=== PATIENT | male | born 2000 | race Caucasian/White ===

== ENCOUNTER 2019-01-28 20:22 | Inpatient (IN) | payer MEDICAID ==
[~2019-01-28] VITALS: Ht 182.9 cm; Wt 84.1 kg
[2019-01-28 23:08] VITALS: BP 133/86; BMI 25.1
[2019-01-28] MEDS ORDERED: IMITREX50 MG PO (23:10)
[2019-01-29] VITALS: BP 122/61
[2019-01-29 03:00] VITALS: BP 119/67
--- NOTE | 2019-01-29 08:12 | NUR ---
AWAKE AND ALERT. ORIENTED X3. NO C/O AT THIS TIME. LUNGS ARE CLEAR BILATERALLY, NO COUGH NOTED. SKIN IS INTACT WITHOUT REDNESS. RIGHT ARM IN SLING,NEUROVASCULAR CHECKS WNL. IV TO LEFT FOREARM IS PATENT WITHOUT REDNESS AT INSERTION SITE. REPORTED FEELS NO URGE TO VOID AT THIS TIME. WILL MONITOR. NO C/O PAIN TO RIGHT ARM.
[2019-01-29 08:19] VITALS: Ht 182.9 cm; Wt 84.1 kg
[2019-01-29 08:46] VITALS: BP 131/74
--- NOTE | 2019-01-29 09:30 | NUR ---
REQUESTED AND GIVEN 50MG IMITREX PO FOR C/O HEADACHE. WILL MONITOR.
--- NOTE | 2019-01-29 12:51 | NUR ---
REPORTS HEADACHE IS FINALLY GONE. OFF UNIT VIA BED TO SURGERY.
[2019-01-29 13:46] VITALS: BP 159/77
[2019-01-29 16:09] VITALS: BP 117/58
--- NOTE | 2019-01-29 16:10 | NUR ---
RETURNED FROM SURGERY. A/O X3. NO C/O AT THIS TIME. REPORTS RIGHT ARM IS NUMB. DENIES NEEDS.
--- NOTE | 2019-01-29 18:38 | NUR ---
ATE ALL OF SUPPER. DENIES NEEDS. NO PAIN BLOCK IS STILL WORKING.
--- NOTE | 2019-01-29 18:42 | NUR ---
ATE ALL OF SANDWICH TRAY PLUS PORK CHOP. DENIES NEEDS. NO CHANGES NOTED.
[2019-01-29 20:00] VITALS: BP 103/54
--- NOTE | 2019-01-29 20:45 | NUR ---
A&O X 4. PERIPHERAL PULSES PALPABLE. PT IS ABLE TO MOVE FINGERS ON RIGHT HAND SLIGHTLY. REPORTS ADEQUATE PAIN CONTROL. DENIES NEEDS AT THIS TIME, WILL CONTINUE TO MONITOR.
[2019-01-30] VITALS: BP 105/48
--- NOTE | 2019-01-30 04:37 | NUR ---
I have reviewed this patient and I concur with the Shift Assessment completed by the Licensed Practical Nurse today this shift.
[2019-01-30] MEDS ORDERED: PERCOCET 10-321 EAC1 PO (08:07)
[2019-01-30 09:15] VITALS: BP 117/74
--- NOTE | 2019-01-30 13:36 | NUR ---
PT RESTING IN BED. NO SIGNS OF DISTRESS. IV TO LEFT AC PATENT NO REDNESS OR TENDERNESS. HAS CHANO WRAP AND SLING TO RIGHT ARM. COMPLAINS OF PAIN. MEDICATIONS GIVEN. DENIES ANY FURTHER NEED AT THIS TIME. CALL LIGHT IN REACH. BED LOW POSITION. NO FAMILY AT BEDSIDE AT THIS TIME.
[2019-01-30 13:50] VITALS: BP 124/63
--- NOTE | 2019-01-30 15:15 | NUR ---
I have reviewed this patient and I concur with the Shift Assessment completed by the Licensed Practical Nurse today this shift.
--- NOTE | 2019-01-30 15:47 | NUR ---
DISCHARGE INSTRUCTIONS GIVEN. SEEMS TO UNDERSTAND INSTRUTIONS. IV OUT TIP INTACT. DENIES ANY NEED LEFT WITH HOSPITAL STAFF TO GO HOME IN PERSONAL RIDE.
== END 2019-01-30 15:48 | disposition home or self-care (01) | DRG 512 ==
LOC: D.MS 20:22
PROVIDERS: ADMIT Orthopaedic Surgery; ATTEND Orthopaedic Surgery
PROC: 0PSK04Z Reposition Right Ulna with Internal Fixation Device, Open Approach (ICD-10-PCS; principal; 2019-01-28)
PROC: 0PSH04Z Reposition Right Radius with Internal Fixation Device, Open Approach (ICD-10-PCS; 2019-01-28)
DX: S52.201A Unspecified fracture of shaft of right ulna, initial encounter for closed fracture (principal); S52.91XA Unspecified fracture of right forearm, initial encounter for closed fracture; F43.10 Post-traumatic stress disorder, unspecified; F90.9 Attention-deficit hyperactivity disorder, unspecified type; F20.9 Schizophrenia, unspecified; G43.909 Migraine, unspecified, not intractable, without status migrainosus

== ENCOUNTER → 2019-11-15 17:35 | Day surgery (SDC) | payer OTHER ==
[~2019-11-15] VITALS: Ht 182.9 cm; Wt 79.4 kg
[2019-11-15 10:02] VITALS: BP 134/83; Ht 182.9 cm; Wt 79.4 kg
[~2019-11-15 17:35] MED LIST: HYDROCODON-ACE1 EA10 PO; IMITREX50 MG PO; PERCOCET 10-321 EAC1 PO
--- NOTE | 2019-11-19 09:56 | OP ---
PATIENT NAME: DEMETRIUS MEJIA MEDICAL RECORD: [id number] :98 LOCATION:[facility] ADMISSION DATE: SURGEON: CLAIRE SCOTT MD DATE OF OPERATION: 11/15/2019 PREOPERATIVE DIAGNOSIS: Right forearm extensor compartment muscle herniation - painful. POSTOPERATIVE DIAGNOSIS: Right forearm extensor compartment muscle herniation - painful. PROCEDURES: 1. Hernia repair with fascial reconstruction. 2. Application of allograft for hernia repair stabilization. SURGEON: Claire Scott MD QUALITY ASSISTANT: Isidoro Sandoval. INTRAOPERATIVE COMPLICATIONS: None. SUMMARY OF PATHOLOGIC FINDINGS: Upon incision and dissection, the patient had a very large extensor compartment muscle herniation. INDICATIONS: This is a 19-year-old female who had a both bone forearm fracture. In the postoperative period, he began lifting weights sooner than advised and split his fascial repair causing a herniation on the dorsal aspect of his right forearm. This became painful with all activities of daily living and use of his right forearm as the muscle would herniate through and become symptomatic. On examination, I felt like it was reasonable to try and reapproximate the patient's fascia only if it could be reinforced. Restrata graft was chosen for reinforcement. OPERATIVE SUMMARY IN DETAIL: After obtaining the appropriate preoperative orthopedic surgery consent as well as anesthetic consultation, evaluation and clearance, the patient was brought to the operating room and placed on the operating table in supine position. After adequate general laryngeal mask airway was administered, tourniquet was placed about the proximal aspect of the patient's right upper extremity. Right upper extremity was then prepped and draped in routine sterile fashion. At this point, the appropriate timeout was taken and agreed upon by all. The arm was elevated and exsanguinated, tourniquet was inflated to 250 mmHg. The patient's previously utilized incision for placement of the ulnar plate was once again utilized. This was taken down to the level of the patient's muscle. No fascia was encountered. The bulbous muscle and herniated muscle was dissected all the way to the fascial layer that had retracted both radially and ulnarly. This fascial layer was dissected clear and free for a good layer. The fascia was strong; however, given the patient's young age, I felt like fascial closure only would not be enough. The fascia was closed with #2 Ethibond in all [id number] fashion resulting in good closure. Some tearing was seen about the needle insertion sites, but a good closure was achieved. In order to maintain this closure, a 5-5 Restrata graft was cut in half and sewn across the entire 9-mm fascial insertion. The graft was applied over the repair and sewn in place with #1 Vicryl in a simple interrupted fashion. The graft was sewn in at approximately 40 points of fixation both radially ulnarly distally as well as proximally as well as between OPERATIVE REPORT [id number] DEMETRIUS MEJIA the two graft points. Intraoperative photographs were taken of the fixation. Having completed this fixation, the skin was closed with 2-0 Vicryl and skin graeme done by DANIELE Moreno. Sterile dressings were applied. Bandage was applied. Tourniquet was deflated. The patient was awakened and taken to the recovery room in stable condition. All final needle and sponge counts were correct. TRANSINT:[id number] Voice Confirmation ID: [id number] DOCUMENT ID: [id number] TYLER BROWN, CLAIRE BEASLEY at [id number] CC: [id number] DICTATION DATE: 11/16/19 1039 MEDICAL OFFICE TECHNICIAN: 11/16/19 1350 [facility] 11/15/19 [facility] [address] [place] [address]
== END | disposition home or self-care (01) ==
LOC: D.OPS 10:30 → D.PAN 10:30 → D.OPS 12:00
PROVIDERS: ATTEND Orthopaedic Surgery
DX: M63.8 Disorders of muscle in diseases classified elsewhere (principal); S52.201D Unspecified fracture of shaft of right ulna, subsequent encounter for closed fracture with routine healing